=== PATIENT | female | born 1995 | race Caucasian/White ===

== ENCOUNTER 2016-09-21 10:43 | Emergency (ER) | payer SELFPAY ==
[~2016-09-21] VITALS: Ht 175.3 cm; Wt 90.7 kg
[2016-09-21 11:46] LABS: BILIRUBIN,URINE NEGATIVE (NEGATIVE); KETONES,URINE NEGATIVE (NEGATIVE); LEUKOCYTE ESTERASE ,URINE 3+ (NEGATIVE); NITRITE,URINE NEGATIVE (NEGATIVE); PH,URINE 6 (5-9); PROTEIN,URINE 2+ (NEGATIVE); UROBILINOGEN,URINE NORMAL (NORMAL)
[2016-09-21 12:02] LABS: WBC,URINE 50-100 /HPF
[2016-09-21] MEDS ORDERED: CIPR-225 PO (12:20)
--- NOTE | 2016-09-21 12:24 | ED GU-Female ---
General Chief Complaint: Abdominal/GI Problems Stated Complaint: ABD PAIN Nursing Triage Note: PT REPORTS SHE STARTED HER PERIOD 2 WEEKS AGO AND FINISHED IT. SHE STATES SHE BEGAN BLEEDING AGAIN TODAY ACCOMPANIED BY LOWER ABD CRAMPING. Nursing Sepsis Screen: No Definite Risk History of Present Illness Time seen by provider: 11:15 Initial Comments Patient reports approximately 3 weeks ago that she thought she was , she never had a positive test. She then had a menstrual cycle that started on September 01. This cycle lasted approximately 4 days. She began spotting again yesterday evening and then having irregular vaginal bleeding today. She has been using a pad, she has not used a tampon. She's been changing the pad approximately every 3 hours, without excessive bleeding. She has not seen an OB/ FLAT BED KNITTER since having her daughter, in 2013. He [facility] within [place]. She is having mild suprapubic cramping today. She denies feeling lightheaded, dizzy or faint. She denies dysuria, frequency or hematuria. She denies any other vaginal discharge and no painful intercourse. Timing/Duration: this morning Severity/Quality: mild Location: suprapubic Radiation: none Activities at Onset: none Prior Genitourinary Problems: none (she denies a history of STIs.) Sexual [place] History: less than 2 months ago, single partner Modifying Factors: Improves With Resting, Improves With Urinating Associated Symptoms: abdominal pain, No fever/chills, No loss of bladder control, No lower back pain, No nausea/vomiting, No polyuria, No urinary frequency Allergies and Home Medications Allergies Coded Allergies: No Known Drug Allergies (Unverified , 09/21/16) Home Medications Ciprofloxacin HCl 500 Mg Tablet, 500 MG PO BID, #6 Ref 0 Prescribed by: NAKIA TODD on 09/21/16 1220 Constitutional: no symptoms reported, see HPI EENTM: no symptoms reported, see HPI Respiratory: no symptoms reported, see HPI Cardiovascular: no symptoms reported, see HPI Gastrointestinal: no symptoms reported, see HPI Genitourinary: see HPI, other (irregular menstrual cycle) : No (negative hCG) LMP: Sep 20, 2016 Musculoskeletal: no symptoms reported, see HPI Skin: no symptoms reported, see HPI Psychiatric/Neurological: No Symptoms Reported, See HPI Endocrine: No Symptoms Reported Hematologic/Lymphatic: No Symptoms Reported, See HPI Past Tugldvh-Wykwoo-Dousgp Hx Patient Social History Alcohol Use: Denies Use Recreational Drug Use: No Smoking Status: Never a Smoker 2nd Hand Smoke Exposure: No Recent Foreign Travel: No Contact w/Someone Who Travel: No Recent Infectious Disease Expo: No Recent Hopitalizations: No Seasonal Allergies Seasonal Allergies: No Physical Exam Vital Signs Vital Sign - Last 12Hours 09/21/16 11:00 Temp 97.2 Pulse 74 Resp 16 B/P (MAP) 122/74 Pulse Ox 98 O2 Delivery Room Air Capillary Refill : Less Than 3 Seconds General Appearance: WD/WN, no apparent distress Neck: non-tender, full range of motion, normal inspection Cardiovascular: normal peripheral pulses, regular rate, rhythm, no edema, no JVD, no murmur Respiratory: chest non-tender, lungs clear, normal breath sounds, no respiratory distress Gastrointestinal: normal bowel sounds, soft, no organomegaly, no pulsatile mass , tenderness (trace suprapubic) Back: normal inspection, no CVA tenderness, no vertebral tenderness Extremities: normal range of motion, non-tender, normal inspection, no calf tenderness, normal capillary refill Neurologic/Psychiatric: no motor/sensory deficits, alert, normal mood/affect, oriented x 3 Skin: normal color, warm/dry Lymphatic: no adenopathy Progress/Results/Core Measures Results/Orders Lab Results Laboratory Tests Test 09/21/16 11:35 Range/Units Urine Color YELLOW Urine Clarity CLEAR Urine pH 6 5-9 Urine Specific [place] 1.015 L 1.016-1.022 Urine Protein 2+ H NEGATIVE Urine Glucose (UA) NEGATIVE NEGATIVE Urine Ketones NEGATIVE NEGATIVE Urine Nitrite NEGATIVE NEGATIVE Urine Bilirubin NEGATIVE NEGATIVE Urine Urobilinogen NORMAL NORMAL MG/DL Urine Leukocyte Esterase 3+ H NEGATIVE Urine RBC (Auto) 5+ H NEGATIVE Urine RBC 50-100 H /HPF Urine WBC 50-100 H /HPF Urine Squamous Epithelial Cells 5-10 /HPF Urine Crystals NONE /LPF Urine Bacteria NEGATIVE /HPF Urine Casts NONE /LPF Urine Mucus NEGATIVE /LPF Urine Culture Indicated YES My Orders Orders - NAKIA TODD Urine Bedside (09/21/16 11:19) Vital Signs/I&O Vital Sign - Last 12Hours 09/21/16 11:00 Temp 97.2 Pulse 74 Resp 16 B/P (MAP) 122/74 Pulse Ox 98 O2 Delivery Room Air Blood Pressure Mean: 90 Point of Care Testing Urine -Bedside: Negative Departure Impression Impression: Primary Impression: Urinary tract infection Qualified Codes: N30.01 - Acute cystitis with hematuria Additional Impression: Irregular menstrual bleeding Disposition: HOME, SELF-CARE Condition: Stable Departure-Patient Inst. Decision time for Depature: 11:45 Referrals: NO,LOCAL PHYSICIAN (PCP/Family) Primary Care Physician Patient Instructions: IRREGULAR VAGINAL BLEEDING, Urinary Tract Infection, Adult (DC) Add. Discharge Instructions: Schedule follow-up appointment with [facility] from [place] that you have previously seen. Recommend Pap and Pelvic exam prior to next or for continued irregular menstrual cycles. Start taking Vitamin, one daily over the counter. Monitor amount and frequency of pad changes, if increases to more than one pad an hour or feeling faint, return to Emergency Department. Ibuprofen 600 mg every 8 hours for cramping. Complete ANTIBIOTIC for urinary tract infection. Return to emergency department if he develops a fever, lightheaded, dizzy, or new problems. All discharge instructions reviewed with patient and/or family. Voiced understanding. Scripts Ciprofloxacin HCl (Cipro) 500 Mg Tablet 500 MG PO BID, #6 TAB 0 Refills Prov: NAKIA TODD 09/21/16 NAKIA TODD Sep 21, 2016 12:24
[2016-09-21 12:39] VITALS: BP 122/74
== END 2016-09-21 12:39 | disposition home or self-care (01) ==
LOC: ER 10:47
DX: N39.0 Urinary tract infection, site not specified (principal); N92.6 Irregular menstruation, unspecified
CPT/HCPCS: 81000; 84703; 87088; 99282

== ENCOUNTER → 2017-01-18 | Outpatient (CLI) | payer MEDICAID ==
[~2017-01-18] MED LIST: CIPR-225 PO
--- NOTE | 2017-01-18 13:27 | Diagnostic Imaging Report ---
First trimester OB ultrasound. INDICATION: Dating. FINDINGS: There is a normal-appearing single intrauterine . An embryo is seen with cardiac activity at 163 beats per minute. The crown-rump length is at 10 weeks and 3 days. CECIL is 08/14/15. The ovaries are not seen, probably obscured by bowel gas. IMPRESSION: Live single intrauterine . Dictated by: Dictated on workstation # [id number]
== END ==
LOC: RAD 12:56
PROVIDERS: ATTEND Family Medicine
DX: Z36.87 Encounter for antenatal screening for uncertain dates (principal); Z3A.10 10 weeks gestation of pregnancy
CPT/HCPCS: 76801

== ENCOUNTER 2017-02-14 18:31 | Emergency (ER) | payer MEDICAID ==
[~2017-02-14] VITALS: Ht 170.2 cm; Wt 86.2 kg
--- NOTE | 2017-02-14 18:47 | ED GU-Female ---
General Stated Complaint: 16 WKS ;VAGINAL BLEEDING Source: patient Exam Limitations: no limitations History of Present Illness Time seen by provider: 18:46 Initial Comments To ER with reports of being roughly 16 weeks gestation and noting some bright red blood on the toilet paper after wiping following urination. This was first noticed earlier today. No abdominal cramping or pain. Ab0. She was briefly taking some vitamins but ran out of them and is not taking them anymore. Severity/Quality: mild Location: unknown Activities at Onset: none Allergies and Home Medications Allergies Coded Allergies: No Known Drug Allergies (Unverified , 09/21/16) Home Medications No Active Prescriptions or Reported Meds Constitutional: see HPI EENTM: see HPI Respiratory: no symptoms reported Cardiovascular: no symptoms reported Genitourinary: no symptoms reported Musculoskeletal: no symptoms reported Skin: no symptoms reported Psychiatric/Neurological: No Symptoms Reported Endocrine: No Symptoms Reported Hematologic/Lymphatic: No Symptoms Reported Past Egrwvct-Icafyz-Rqjwfn Hx Patient Social History 2nd Hand Smoke Exposure: No Recent Foreign Travel: No Contact w/Someone Who Travel: No Recent Hopitalizations: No Seasonal Allergies Seasonal Allergies: No Surgeries History of Surgeries: No Physical Exam Vital Signs Vital Sign - Last 12Hours 02/14/17 18:35 Temp 98.4 Pulse 78 Resp 18 B/P (MAP) 132/81 Pulse Ox 99 Capillary Refill : General Appearance: WD/WN, no apparent distress HEENT: PERRL/EOMI, normal ENT inspection, TMs normal Neck: non-tender, full range of motion Respiratory: normal breath sounds, no respiratory distress, no accessory muscle use Gastrointestinal: normal bowel sounds, non tender Neurologic/Psychiatric: alert, normal mood/affect, oriented x 3 Skin: normal color, warm/dry Progress/Results/Core Measures Suspected Sepsis SIRS Temperature: Pulse: Respiratory Rate: Laboratory Tests 02/14/17 19:10: Blood Pressure / Mean: Laboratory Tests 02/14/17 19:10: Results/Orders Lab Results Laboratory Tests Test 02/14/17 19:06 02/14/17 19:10 Range/Units Urine Color YELLOW Urine Clarity SLIGHTLY CLOUDY Urine pH 5 5-9 Urine Specific [place] 1.030 H 1.016-1.022 Urine Protein NEGATIVE NEGATIVE Urine Glucose (UA) NEGATIVE NEGATIVE Urine Ketones NEGATIVE NEGATIVE Urine Nitrite NEGATIVE NEGATIVE Urine Bilirubin NEGATIVE NEGATIVE Urine Urobilinogen NORMAL NORMAL MG/DL Urine Leukocyte Esterase 2+ H NEGATIVE Urine RBC (Auto) 1+ H NEGATIVE Urine RBC 0-2 /HPF Urine WBC 5-10 H /HPF Urine Squamous Epithelial Cells 25-50 H /HPF Urine Crystals NONE /LPF Urine Bacteria FEW H /HPF Urine Casts NONE /LPF Urine Mucus LARGE H /LPF Urine Culture Indicated YES My Orders Orders - DONG MCGOWAN APRN Cbc With Automated Diff (02/14/17 18:45) Hcg,Quantitative (02/14/17 18:45) Ua Culture If Indicated (02/14/17 18:45) Urine Culture (02/14/17 19:06) Vital Signs/I&O Vital Sign - Last 12Hours 02/14/17 18:35 Temp 98.4 Pulse 78 Resp 18 B/P (MAP) 132/81 Pulse Ox 99 Capillary Refill : Departure Communication (Admissions) Progress Notes 1848-27 days ago she did have a live intrauterine at 10 weeks 3 days documented on ultrasound here. Today on bedside ultrasound I am able to identify the intrauterine with cardiac activity and movement. Impression Impression: Primary Impression: Spotting in early Additional Impression: Urinary tract infection Disposition: HOME, SELF-CARE Condition: Stable Departure-Patient Inst. Decision time for Depature: 18:50 Referrals: [place] CHICAS MD (PCP) Primary Care Physician Patient Instructions: SPOTTING IN EARLY , Urinary Tract Infection, Adult (DC) Add. Discharge Instructions: 1. Return to ER for any concerns 2. Follow-up with your doctor later this week. Scripts Nitrofurantoin Macrocrystal (Nitrofurantoin) 100 Mg Capsule 100 MG PO BID, #10 CAP Prov: DONG MCGOWAN APRN 02/14/17 DONG MCGOWAN APRN Feb 14, 2017 18:47
[2017-02-14 19:12] LABS: BILIRUBIN,URINE NEGATIVE (NEGATIVE); KETONES,URINE NEGATIVE (NEGATIVE); LEUKOCYTE ESTERASE ,URINE 2+ (NEGATIVE); NITRITE,URINE NEGATIVE (NEGATIVE); PH,URINE 5 (5-9); PROTEIN,URINE NEGATIVE (NEGATIVE); UROBILINOGEN,URINE NORMAL (NORMAL)
[2017-02-14 19:28] LABS: BASOPHILS % (AUTO) 1 % (0-10); EOSINOPHILS # (AUTO) 0.2 10^3/uL (0.0-0.3); EOSINOPHILS % (AUTO) 3 % (0-10); LYMPHOCYTES # (AUTO) 2.1 X 10^3 (1.0-4.0); LYMPHOCYTES % (AUTO) 26 % (12-44); MEAN CORPUSCULAR HEMOGLOBIN 29 PG (25-34); MEAN CORPUSCULAR HGB CONC 35 G/DL (32-36); MEAN CORPUSCULAR VOLUME 83 FL (80-99); MONOCYTES # (AUTO) 0.9 X 10^3 (0.0-1.0); MONOCYTES % (AUTO) 11 % (0-12); NEUTROPHILS # (AUTO) 4.8 X 10^3 (1.8-7.8); NEUTROPHILS % (AUTO) 59 % (42-75); PLATELET COUNT 81 10^3/uL (130-400); RED BLOOD COUNT 4.42 10^6/uL (4.35-5.85)
[2017-02-14 19:33] LABS: SQUAMOUS EPITHELIAL CELL,UR 25-50 /HPF
[2017-02-14] MEDS ORDERED: NITR100C PO (19:37)
[2017-02-14 19:55] VITALS: BP 132/81
== END 2017-02-14 19:55 | disposition home or self-care (01) ==
LOC: EDUNIT# 18:31 → ER 18:32
DX: O26.852 Spotting complicating pregnancy, second trimester (principal); O23.40 Unspecified infection of urinary tract in pregnancy, unspecified trimester; Z3A.16 16 weeks gestation of pregnancy
CPT/HCPCS: 36415; 81000; 84702; 85025; 87088; 99282

== ENCOUNTER → 2017-03-27 | Outpatient (CLI) | payer MEDICAID ==
[~2017-03-27] MED LIST changes: +NITR100C PO
--- NOTE | 2017-03-27 12:52 | Diagnostic Imaging Report ---
INDICATION: care. TECHNIQUE: Multiple real-time grayscale images were obtained over the gravid uterus. COMPARISON: Exam compared to 01/18/2017. FINDINGS: A martinez gestation is in cephalic position. The placenta is anterior. The caudal tip is extending to the margin of the closed os. The cervical length is 5.2 cm, nondilated, and appearing unremarkable. No pathological finding at the anatomical survey is found however owing to lie, spine and cord insertion are not well visualized. Heart rate is 147 beats per minute. IMPRESSION: Martinez gestation measuring 19 weeks 5 days. No pathological finding at the anatomical survey however it is limited at the spine and cord insertion owing to lie. Anterior placenta is low lying extending to the margin of the closed internal os with normal cervical length. Followup in the late second or third trimester recommended to exclude persistent marginal previa. Biometrical measurements are as follows: Biparietal 4.38 cm, age 19 weeks 2 days. Head circumference 16.73 cm, age 19 weeks 3 days. Abdominal circumference 14.71 cm, age 20 weeks 0 days. Femur length 3.23 cm, age 20 weeks 1 days. Sonographic estimate age: 19 weeks 5 days. Sonographic estimated date of delivery: 08-16-17. Estimated Weight: 322 gm (+/- 47 gm). LMP percentile: 34%. heart rate: 147 beats per minute. number: 1 of 1. Dictated by: Dictated on workstation # [id number]
== END ==
LOC: RAD 09:36
PROVIDERS: ATTEND Family Medicine
DX: Z36.89 Encounter for other specified antenatal screening (principal); Z3A.19 19 weeks gestation of pregnancy
CPT/HCPCS: 76805

== ENCOUNTER → 2017-05-03 | Outpatient (CLI) | payer MEDICAID ==
--- NOTE | 2017-05-03 14:16 | Diagnostic Imaging Report ---
INDICATION: Follow-up spine, cord insertion, and low-lying placenta. TECHNIQUE: Multiple real-time grayscale images were obtained over the gravid uterus. COMPARISON: 03/27/2017. FINDINGS: There is a single live fetus in a cephalic presentation. The placenta is anterior. The placenta is no longer low lying. The amniotic fluid volume appears normal. The spine and cord insertion are unremarkable. IMPRESSION: Unremarkable follow-up ultrasound demonstrating an anterior placenta which is no longer low lying. spine and cord insertion are unremarkable. Dictated by: Dictated on workstation # [id number]
== END ==
LOC: RAD 12:55
PROVIDERS: ATTEND Family Medicine
DX: Z34.82 Encounter for supervision of other normal pregnancy, second trimester (principal); Z3A.00 Weeks of gestation of pregnancy not specified
CPT/HCPCS: 76816

== ENCOUNTER 2017-06-08 12:42 | Outpatient (RCR) | payer MEDICAID ==
[2017-03-16 12:14] LABS: ABSOLUTE RETIC # 68 10e9/L (24-90); BASOPHILS % (AUTO) 0 % (0-10); EOSINOPHILS # (AUTO) 0.1 10^3/uL (0.0-0.3); EOSINOPHILS % (AUTO) 2 % (0-10); HEMATOCRIT 40 % (35-52); HEMOGLOBIN 13.8 G/DL (11.5-16.0); LYMPHOCYTES % (AUTO) 24 % (12-44); MEAN CORPUSCULAR HEMOGLOBIN 29 PG (25-34); MEAN CORPUSCULAR HGB CONC 35 G/DL (32-36); MEAN CORPUSCULAR VOLUME 82 FL (80-99); MONOCYTES # (AUTO) 0.6 X 10^3 (0.0-1.0); MONOCYTES % (AUTO) 8 % (0-12); NEUTROPHILS # (AUTO) 5.6 X 10^3 (1.8-7.8); NEUTROPHILS % (AUTO) 66 % (42-75); PLATELET COUNT 90 10^3/uL (130-400); RED BLOOD COUNT 4.84 10^6/uL (4.35-5.85); RED CELL DISTRIBUTION WIDTH 12.4 % (10.0-14.5); RETICULOCYTE % 1.41 % (0.50-2.40); WHITE BLOOD COUNT 8.4 10^3/uL (4.3-11.0)
[2017-03-16 12:25] LABS: INR 0.9 (0.8-1.4); PROTHROMBIN TIME PATIENT 12.7 SEC (12.2-14.7)
[2017-03-16 12:34] LABS: BAND NEUTROPHILS 0 %; BASOPHILS % (MANUAL) 0 %; EOSINOPHILS % (MANUAL) 4 %; LYMPHOCYTES % (MANUAL) 18 %; MONOCYTES % (MANUAL) 4 %; NEUTROPHILS % (MANUAL) 70 %; RBC MORPH NORMAL; REACTIVE LYMPHOCYTES 4 %
[2017-03-17 13:14] LABS: HEPATITIS C ANTIBODY C Non-Reactive (Non-Reactive)
[2017-06-08 14:15] LABS: BASOPHILS % (AUTO) 0 % (0-10); EOSINOPHILS # (AUTO) 0.1 10^3/uL (0.0-0.3); EOSINOPHILS % (AUTO) 2 % (0-10); HEMATOCRIT 35 % (35-52); HEMOGLOBIN 12.5 G/DL (11.5-16.0); LYMPHOCYTES # (AUTO) 1.6 X 10^3 (1.0-4.0); LYMPHOCYTES % (AUTO) 20 % (12-44); MEAN CORPUSCULAR HEMOGLOBIN 30 PG (25-34); MEAN CORPUSCULAR HGB CONC 35 G/DL (32-36); MEAN CORPUSCULAR VOLUME 84 FL (80-99); MEAN PLATELET VOLUME 13.9 FL (7.4-10.4); MONOCYTES # (AUTO) 0.9 X 10^3 (0.0-1.0); MONOCYTES % (AUTO) 11 % (0-12); NEUTROPHILS # (AUTO) 5.4 X 10^3 (1.8-7.8); NEUTROPHILS % (AUTO) 67 % (42-75); PLATELET COUNT 107 10^3/uL (130-400); RED CELL DISTRIBUTION WIDTH 12.8 % (10.0-14.5); WHITE BLOOD COUNT 8.1 10^3/uL (4.3-11.0)
[2017-06-08 14:52] LABS: ALANINE AMINOTRANSFERASE 17 U/L (0-55); ALBUMIN 3.6 GM/DL (3.2-4.5); ALKALINE PHOSPHATASE 51 U/L (40-136); BILIRUBIN,TOTAL 0.2 MG/DL (0.1-1.0); BUN/CREATININE RATIO 11; CALCIUM 9.1 MG/DL (8.5-10.1); CARBON DIOXIDE 23 MMOL/L (21-32); CHLORIDE 108 MMOL/L (98-107); CREATININE SERUM 0.55 MG/DL (0.60-1.30); GFR ESTIMATED > 60; GLUCOSE 106 MG/DL (70-105); POTASSIUM 3.7 MMOL/L (3.6-5.0); SODIUM 137 MMOL/L (135-145); TOTAL PROTEIN 6.5 GM/DL (6.4-8.2)
== END 2017-06-14 | disposition home or self-care (01) ==
LOC: ONC 12:42
PROVIDERS: ATTEND Internal Medicine Hematology & Oncology
DX: O99.112 Other diseases of the blood and blood-forming organs and certain disorders involving the immune mechanism complicating pregnancy, second trimester (principal); D69.6 Thrombocytopenia, unspecified; Z3A.18 18 weeks gestation of pregnancy
CPT/HCPCS: 80053; 80074; 82525; 82607; 82728; 82746; 83540; 85007; 85025; 85027; 85045; 85610; 85730; 86038; 86039; 86703; 99213; 99214

== ENCOUNTER 2017-08-10 10:50 | Outpatient (RCR) | payer MEDICAID ==
[2017-07-06 11:32] LABS: BASOPHILS % (AUTO) 0 % (0-10); EOSINOPHILS # (AUTO) 0.1 10^3/uL (0.0-0.3); EOSINOPHILS % (AUTO) 1 % (0-10); HEMATOCRIT 35 % (35-52); HEMOGLOBIN 11.9 G/DL (11.5-16.0); LYMPHOCYTES # (AUTO) 1.6 X 10^3 (1.0-4.0); LYMPHOCYTES % (AUTO) 21 % (12-44); MEAN CORPUSCULAR HEMOGLOBIN 29 PG (25-34); MEAN CORPUSCULAR HGB CONC 34 G/DL (32-36); MEAN CORPUSCULAR VOLUME 84 FL (80-99); MEAN PLATELET VOLUME 13.8 FL (7.4-10.4); MONOCYTES # (AUTO) 0.7 X 10^3 (0.0-1.0); MONOCYTES % (AUTO) 10 % (0-12); NEUTROPHILS # (AUTO) 5.1 X 10^3 (1.8-7.8); NEUTROPHILS % (AUTO) 68 % (42-75); PLATELET COUNT 91 10^3/uL (130-400); RED BLOOD COUNT 4.15 10^6/uL (4.35-5.85); RED CELL DISTRIBUTION WIDTH 13.1 % (10.0-14.5); WHITE BLOOD COUNT 7.4 10^3/uL (4.3-11.0)
[2017-07-06 11:51] LABS: ALANINE AMINOTRANSFERASE 17 U/L (0-55); ALBUMIN 3.7 GM/DL (3.2-4.5); ALKALINE PHOSPHATASE 71 U/L (40-136); BILIRUBIN,TOTAL 0.3 MG/DL (0.1-1.0); BUN/CREATININE RATIO 8; CALCIUM 9.4 MG/DL (8.5-10.1); CARBON DIOXIDE 23 MMOL/L (21-32); CHLORIDE 108 MMOL/L (98-107); CREATININE SERUM 0.64 MG/DL (0.60-1.30); GFR ESTIMATED > 60; GLUCOSE 120 MG/DL (70-105); POTASSIUM 3.6 MMOL/L (3.6-5.0); SODIUM 139 MMOL/L (135-145); TOTAL PROTEIN 6.6 GM/DL (6.4-8.2)
[2017-08-10 11:15] LABS: BASOPHILS % (AUTO) 0 % (0-10); EOSINOPHILS # (AUTO) 0.1 10^3/uL (0.0-0.3); EOSINOPHILS % (AUTO) 1 % (0-10); HEMATOCRIT 35 % (35-52); LYMPHOCYTES # (AUTO) 1.7 X 10^3 (1.0-4.0); LYMPHOCYTES % (AUTO) 25 % (12-44); MEAN CORPUSCULAR HEMOGLOBIN 28 PG (25-34); MEAN CORPUSCULAR HGB CONC 34 G/DL (32-36); MEAN CORPUSCULAR VOLUME 83 FL (80-99); MONOCYTES # (AUTO) 0.7 X 10^3 (0.0-1.0); MONOCYTES % (AUTO) 9 % (0-12); NEUTROPHILS # (AUTO) 4.6 X 10^3 (1.8-7.8); NEUTROPHILS % (AUTO) 65 % (42-75); PLATELET COUNT 86 10^3/uL (130-400); RED BLOOD COUNT 4.25 10^6/uL (4.35-5.85); RED CELL DISTRIBUTION WIDTH 13.5 % (10.0-14.5); WHITE BLOOD COUNT 7.1 10^3/uL (4.3-11.0)
[2017-08-10 11:33] LABS: ALANINE AMINOTRANSFERASE 19 U/L (0-55); ALBUMIN 3.4 GM/DL (3.2-4.5); ALKALINE PHOSPHATASE 79 U/L (40-136); BILIRUBIN,TOTAL 0.4 MG/DL (0.1-1.0); BUN/CREATININE RATIO 8; CARBON DIOXIDE 21 MMOL/L (21-32); CHLORIDE 108 MMOL/L (98-107); CREATININE SERUM 0.65 MG/DL (0.60-1.30); GFR ESTIMATED > 60; GLUCOSE 126 MG/DL (70-105); POTASSIUM 3.8 MMOL/L (3.6-5.0); SODIUM 139 MMOL/L (135-145); TOTAL PROTEIN 6.5 GM/DL (6.4-8.2)
[2017-08-11] MEDS ORDERED: ACYC400T PO (19:42)
[2017-08-12] MEDS ORDERED: PREN1TAB86 PO (15:18)
[2017-08-14] MEDS ORDERED: IBUP-844 PO (09:29)
== END 2017-10-04 | disposition home or self-care (01) ==
LOC: ONC 10:50
PROVIDERS: ATTEND Internal Medicine Hematology & Oncology
DX: O99.113 Other diseases of the blood and blood-forming organs and certain disorders involving the immune mechanism complicating pregnancy, third trimester (principal); D69.6 Thrombocytopenia, unspecified; Z3A.33 33 weeks gestation of pregnancy
CPT/HCPCS: 36415; 80053; 85025; 99213

== ENCOUNTER 2017-08-11 18:50 | Outpatient (CLI) | payer MEDICAID ==
[~2017-08-11] VITALS: Ht 171.4 cm; Wt 94.6 kg
[2017-08-11 19:10] VITALS: BP 124/80
[2017-08-11] MEDS ORDERED: ACYC400T PO (19:42)
[2017-08-12] MEDS ORDERED: PREN1TAB86 PO (15:18)
--- NOTE | 2017-08-14 15:57 | Physician Query-Final Dx ---
JOSELYN NORTH 08/14/17 1556: Clinic Account Progress/Dx Physician Query: Please give diagnosis Date of Service August 11, 2017 at 18:50 [place] CHICAS MD 08/23/17 0938: Clinic Account Progress/Dx DIAGNOSIS: Diagnosis 39 week gestation Contractions/early labor with no cervical change JOSELYN NORTH August 14, 2017 15:56 [place] CHICAS MD Aug 23, 2017 09:38
== END 2017-08-11 19:58 | disposition home or self-care (01) ==
LOC: WSo 18:50 → LDRP 18:50 → WSo 19:58
PROVIDERS: ATTEND Family Medicine
DX: O47.1 False labor at or after 37 completed weeks of gestation (principal); Z3A.39 39 weeks gestation of pregnancy
CPT/HCPCS: 99213

== ENCOUNTER 2017-08-12 13:33 | Inpatient (IN) | payer MEDICAID ==
[2017-08-12] VITALS (14 sets, daily range): BP systolic 96–138; BP diastolic 56–78
[~2017-08-12] VITALS: Ht 171.4 cm; Wt 93.9 kg
[~2017-08-12 13:33] MED LIST changes: +ACYC400T PO
[2017-08-12] MEDS ORDERED: D5 LR IV SOLUTION 1,000 ML IV SCH (14:01)
[2017-08-12] MEDS ORDERED: MINERAL OIL CONCENTRATE 99.9% 15 ML UDC TOP PRN (14:15)
[2017-08-12 14:27] LABS: BASOPHILS % (AUTO) 0 % (0-10); EOSINOPHILS % (AUTO) 0 % (0-10); HEMATOCRIT 35 % (35-52); HEMOGLOBIN 12.1 G/DL (11.5-16.0); LYMPHOCYTES # (AUTO) 1.2 X 10^3 (1.0-4.0); LYMPHOCYTES % (AUTO) 10 % (12-44); MEAN CORPUSCULAR HEMOGLOBIN 29 PG (25-34); MEAN CORPUSCULAR HGB CONC 35 G/DL (32-36); MEAN CORPUSCULAR VOLUME 82 FL (80-99); MONOCYTES # (AUTO) 1.1 X 10^3 (0.0-1.0); MONOCYTES % (AUTO) 9 % (0-12); NEUTROPHILS # (AUTO) 9.2 X 10^3 (1.8-7.8); NEUTROPHILS % (AUTO) 80 % (42-75); PLATELET COUNT 81 10^3/uL (130-400); RED CELL DISTRIBUTION WIDTH 13.5 % (10.0-14.5); WHITE BLOOD COUNT 11.5 10^3/uL (4.3-11.0)
--- NOTE | 2017-08-12 14:34 | History & Physical-OB ---
OB - Chief Complaint & HPI Date/Time Date of Admission: Date of Admission: August 12, 2017 at 2:01 pm Time Seen by Provider: 14:29 Chief Complaint/History OB-Reason for Admission/Chief: Onset of Labor Hx : 3 Hx Para: 2 Expected Date of Delivery: Aug 18, 2017 Gestational Age in Weeks: 39 Gestational Age in Days: 1 Admission Nurse Assessment Rev: Yes History of Labs O neg, antibody neg, HIV/HepB/RPR NR. GC neg. Chlamydia pos, treated 01/25 and f/ u [facility]ANNAH negative. History of HSV. Chronic thrombocytopenia- ITP vs gestational, platelets stable throughout with lowest count 78,000. Allergies and Home Medications Allergies Coded Allergies: No Known Drug Allergies (Unverified , 09/21/16) Home Medications Acyclovir 400 Mg Tablet, 400 MG PO TID, (Reported) Patient Home Medication List Home Medication List Reviewed: Yes OB - History Hx of Present Care: Yes Ultrasounds: Normal mid trimester US (initial US with low-lying placenta, follow up resolved.) Obstetrical Complications: Other (Thrombocytopenia) Medical Complications: Other (HSV on suppression therapy) Obstetrical History Hx : 3 Hx Para: 2 Hx # Term Pregnancies: 2 Hx # Pregnancies: 0 Number of Living Children: 2 Hx Termination: No Hx Total # of Abortions (Spona: 0 Hx Multiple Gestation: No Hx Ectopic : No Hx Stillbirth: No Hx Complication: No Hx Induced Hypertens: No Hx Maternal Gestational Diabet: No Hx Hemorrhage: Yes Delivery History Hx Dystocia: No Hx Forceps Assisted Delivery: No Hx Vacuum Extraction Assisted: No Hx Placenta Abnormality: No Hx Distress: No Hx Large For Gestational Age I: No Hx Small for Gestational Age I: No Hx Section: No Hx Vaginal Delivery Post C-Sec: No Hx Blood Disorders: Yes (thrombocytopenia) Adverse Rxn to Tranfusion: No Patient Past Medical History PMHx: Herpes Immune vs gestational thromboctyopenia Social History/Family History HIV/AIDS: No Recent Infectious Disease Expo: No Sexually Transmitted Disease: Yes (chlamydia, HSV) Alcohol Use: Denies Use Recreational Drug Use: No Smoking Cessation: Never smoker 2nd Hand Smoke Exposure: No Immunizations Tetanus Booster (TDap): Less than 5yrs (06/14/2017) Rubella: immune RPR/VDRL: Negative GBS Status: Negative HBsAG: Negative OB - Admission Exam Physical Exam HEENT: NCAT Cervical Dilatation: 5cm Effacement: 100% Station: -1 Membranes: Intact Heart Rate: 120's Decelerations: Early Decelerations Short Term Variability: Present Terrazzo Layer Helper Variability: Average (6-25) Contractions on Admission: < 5 Minutes Apart Intensity: Moderate Labs Laboratory Tests Test 08/12/17 14:10 Range/Units White Blood Count 11.5 H 4.3-11.0 10^3/uL Red Blood Count 4.20 L 4.35-5.85 10^6/uL Hemoglobin 12.1 11.5-16.0 G/DL Hematocrit 35 35-52 % Mean Corpuscular Volume 82 80-99 FL Mean Corpuscular Hemoglobin 29 25-34 PG Mean Corpuscular Hemoglobin Concent 35 32-36 G/DL Red Cell Distribution Width 13.5 10.0-14.5 % Platelet Count 81 L 130-400 10^3/uL Mean Platelet Volume 7.4-10.4 FL Neutrophils (%) (Auto) 80 H 42-75 % Lymphocytes (%) (Auto) 10 L 12-44 % Monocytes (%) (Auto) 9 0-12 % Eosinophils (%) (Auto) 0 0-10 % Basophils (%) (Auto) 0 0-10 % Neutrophils # (Auto) 9.2 H 1.8-7.8 X 10^3 Lymphocytes # (Auto) 1.2 1.0-4.0 X 10^3 Monocytes # (Auto) 1.1 H 0.0-1.0 X 10^3 Eosinophils # (Auto) 0.0 0.0-0.3 10^3/uL Basophils # (Auto) 0.0 0.0-0.1 10^3/uL OB - Assessment/Plan/Diagnosis Assessment Assessment: active labor Admission Dx Active labor at 39 weeks gestation Immune vs gestational thrombocytopenia H/o HSV on acyclovir suppression GBS neg Blood type O neg Rubella immune Admission Status: Inpatient Order (span 2 midnights) Reason for Inpatient Admission: Labor and delivery with expected stay of 2 nights Plan Plan: Expectant Management Other Plan H/O HSV on suppression- vaginal speculum exam done and no lesions noted Immune vs gestational thrombocytopenia- stable platelets above 50,000 low risk for complications. Does not want epidural anyway. Methergine and cytotec available for delivery. Copy Copies To 1: [place] CHICAS MD, BETHANY N MD August 12, 2017 2:34 pm
[2017-08-12] MEDS ORDERED: PREN1TAB86 PO (15:18)
[2017-08-12] MEDS ORDERED: MISOPROSTOL 200 MCG (CYTOTEC) TABLET ONE (16:09)
[2017-08-12] MEDS ORDERED: OXYTOCIN/NORMAL SALINE 500 ML IV ONE ×2 (16:10→17:34)
[2017-08-12] MEDS ORDERED: METHYLERGONOVINE 0.2 MG/ML (METHERGINE) AMP ONE (17:22)
--- NOTE | 2017-08-12 17:45 | OB Labor & Delivery Record ---
Vag Delivery Note Vag Delivery Note Date of Delivery: 08/12/17 Preoperative Diagnosis: Allie Almazan is a (24 /Para 3 / 2, Gestational Age (wks)39with 1d Postoperative Diagnosis: Same Surgeon: [place] CHICAS Anesthesia: None Delivery Type: Spontaneous vaginal Findings: [] Viable male , apgars 8/9, weight 8#1 Lacerations: periurethral abrasion Intact placenta with 3 vessel cord. No nuchal cord, body cord or shoulder dystocia Cytotec 800 mcg placed for hemorrhage prophylaxis. Mild continued bleeding, methergine IM given. Estimated Blood Loss: 250 ml Complications: None Condition: Stable Description of Procedure: The patient is a G3 now P3 with gestational/immune thrombocytopenia who presented in active labor. She was admitted and informed consent was obtained. Her labor course was unremarkable. She progressed to complete dilatation and began to push. She was then set up for delivery. The 's head was delivered atraumatically in the JAZ position. The shoulders and remainder of the infant's body were then delivered without difficulty. Upon delivery, the was vigorous and placed on maternal abdomen. The cord was doubly clamped and cut and the was handed off to the pediatric staff. An intact placenta with 3- vessel cord delivered via Lili and there was found to be minimal bleeding.~ Vigorous fundal massage was performed and the fundus was found to be firm. IV oxytocin was given. Examination of the vagina and perineum revealed a periurethral abrasion not requiring repair. Following the delivery, sponge, instrument and needle counts were correct. Mom and baby were both in stable condition in the labor suite. Vitals - Labs Labs Laboratory Tests 08/12/17 14:10: White Blood Count 11.5H, Red Blood Count 4.20L, Hemoglobin 12.1, Hematocrit 35, Mean Corpuscular Volume 82, Mean Corpuscular Hemoglobin 29, Mean Corpuscular Hemoglobin Concent 35, Red Cell Distribution Width 13.5, Platelet Count 81L, Mean Platelet Volume , Neutrophils (%) (Auto) 80H, Lymphocytes (%) (Auto) 10L, Monocytes (%) (Auto) 9, Eosinophils (%) (Auto) 0, Basophils (%) (Auto) 0, Neutrophils # (Auto) 9.2H, Lymphocytes # (Auto) 1.2, Monocytes # (Auto) 1.1H, Eosinophils # (Auto) 0.0, Basophils # (Auto) 0.0 KY CHICAS MD August 12, 2017 5:45 pm
[2017-08-12] MEDS ORDERED: OXYTOCIN/NORMAL SALINE 500 ML IV SCH (18:43)
[2017-08-12] MEDS ORDERED: BENZOCAINE/MENTHOL (DERMOPLAST) 56 ML CAN TP PRN (18:45)
[2017-08-12] MEDS ORDERED: METHYLERGONOVINE 0.2 MG/ML (METHERGINE) AMP IM PRN (18:45)
[2017-08-12] MEDS ORDERED: MISOPROSTOL 200 MCG (CYTOTEC) TABLET PO ONE (18:45)
[2017-08-12] MEDS ORDERED: WITCH HAZEL(TUCKS) 40 EA JAR TOP PRN (18:45)
[2017-08-12] MEDS ORDERED: BENZOCAINE/MENTHOL (DERMOPLAST) 56 ML CAN TP ONE (20:08)
[2017-08-12] MEDS ORDERED: IBUPROFEN 600 MG (MOTRIN) TAB PO ONE (20:08)
[2017-08-12] MEDS: IBUPROFEN 600 MG (MOTRIN) TAB PO SCH (20:19)
[2017-08-12] MEDS ORDERED: CATHETER FLUSH 10 ML SYR IV SCH ×2 (22:00)
[2017-08-13 03:30] VITALS: BP 114/75
[2017-08-13] MEDS: IBUPROFEN 600 MG (MOTRIN) TAB PO SCH ×4 (03:32→22:14)
[2017-08-13 06:38] LABS: BASOPHILS % (AUTO) 0 % (0-10); EOSINOPHILS % (AUTO) 0 % (0-10); HEMATOCRIT 34 % (35-52); HEMOGLOBIN 11.6 G/DL (11.5-16.0); LYMPHOCYTES # (AUTO) 2.2 X 10^3 (1.0-4.0); LYMPHOCYTES % (AUTO) 16 % (12-44); MEAN CORPUSCULAR HEMOGLOBIN 28 PG (25-34); MEAN CORPUSCULAR HGB CONC 35 G/DL (32-36); MEAN CORPUSCULAR VOLUME 82 FL (80-99); MONOCYTES % (AUTO) 14 % (0-12); NEUTROPHILS # (AUTO) 9.6 X 10^3 (1.8-7.8); NEUTROPHILS % (AUTO) 70 % (42-75); PLATELET COUNT 76 10^3/uL (130-400); RED BLOOD COUNT 4.08 10^6/uL (4.35-5.85); RED CELL DISTRIBUTION WIDTH 13.6 % (10.0-14.5); WHITE BLOOD COUNT 13.8 10^3/uL (4.3-11.0)
[2017-08-13 08:30] VITALS: BP 107/63
[2017-08-13] MEDS: PRENATAL VITAMIN 1 EA TAB PO SCH (08:30)
--- NOTE | 2017-08-13 08:42 | Progress Note (SOAP) ---
Subjective Subjective/Events-last exam Doing well w/o complaints. Bleeding light. Minimal cramping. Having trouble with , started supplementing. Review of Systems Date Seen by Provider: August 13, 2017 Time Seen by Provider: 08:46 Objective Exam Last Set of Vital Signs Vital Signs Date Time Temp Pulse Resp B/P (MAP) Pulse Ox O2 Delivery O2 Flow Rate FiO2 08/13/17 03:30 97.9 66 18 114/75 (88) 99 08/12/17 18:08 Room Air Capillary Refill : General: Alert, Oriented X3, Cooperative Abdomen: Soft (uterus firm), No Tenderness Results/Procedures Lab Laboratory Tests 08/12/17 14:10: White Blood Count 11.5H, Red Blood Count 4.20L, Hemoglobin 12.1, Hematocrit 35, Mean Corpuscular Volume 82, Mean Corpuscular Hemoglobin 29, Mean Corpuscular Hemoglobin Concent 35, Red Cell Distribution Width 13.5, Platelet Count 81L, Mean Platelet Volume , Neutrophils (%) (Auto) 80H, Lymphocytes (%) (Auto) 10L, Monocytes (%) (Auto) 9, Eosinophils (%) (Auto) 0, Basophils (%) (Auto) 0, Neutrophils # (Auto) 9.2H, Lymphocytes # (Auto) 1.2, Monocytes # (Auto) 1.1H, Eosinophils # (Auto) 0.0, Basophils # (Auto) 0.0 08/13/17 06:00: White Blood Count 13.8H, Red Blood Count 4.08L, Hemoglobin 11.6, Hematocrit 34L , Mean Corpuscular Volume 82, Mean Corpuscular Hemoglobin 28, Mean Corpuscular Hemoglobin Concent 35, Red Cell Distribution Width 13.6, Platelet Count 76L, Mean Platelet Volume , Neutrophils (%) (Auto) 70, Lymphocytes (%) (Auto) 16, Monocytes (%) (Auto) 14H, Eosinophils (%) (Auto) 0, Basophils (%) (Auto) 0, Neutrophils # (Auto) 9.6H, Lymphocytes # (Auto) 2.2, Monocytes # (Auto) 2.0H, Eosinophils # (Auto) 0.0, Basophils # (Auto) 0.0 Assessment/Plan Assessment/Plan (1) Vaginal delivery with potential for hemorrhage Assessment & Plan: 08/12/17 at 39w1d following RYAN - periurethral abrasion not requiring repair - GBS neg; RI - at risk for bleeding due to thrombocytopenia; Cytotec and Methergine given for post- hemorrhage prophylaxis - normal lochia post- (2) Thrombocytopenia complicating Status: Chronic Assessment & Plan: Gestational vs ITP - platelets 81,000 --> 76,000 - no abnormal bleeding post- - will recheck prior to DC and need recheck at 6 wk pp visit. (3) Rh negative status during Status: Chronic Assessment & Plan: O neg/ baby O+ - will need Rhogam (4) HSV infection Status: Chronic Assessment & Plan: Tx w/ acyclovir prophylaxis; no active lesions (5) History of chlamydia Status: Resolved Assessment & Plan: +chlamydia 01/2017; negative [facility]ANNA[facility] Clinical Quality Measures DVT/VTE Risk/Contraindication: Risk Factor Score Per Nursin RFS Level Per Nursing on Admit: 1=Low/No VTE PPX MATT CALLES DO August 13, 2017 08:42
[2017-08-13 15:25] VITALS: BP 101/56
[2017-08-13 22:14] VITALS: BP 105/64
[2017-08-14] MEDS: IBUPROFEN 600 MG (MOTRIN) TAB PO SCH ×3 (04:13→17:03)
[2017-08-14 05:27] LABS: BASOPHILS % (AUTO) 0 % (0-10); EOSINOPHILS # (AUTO) 0.2 10^3/uL (0.0-0.3); EOSINOPHILS % (AUTO) 3 % (0-10); HEMATOCRIT 33 % (35-52); HEMOGLOBIN 10.8 G/DL (11.5-16.0); LYMPHOCYTES # (AUTO) 2.3 X 10^3 (1.0-4.0); LYMPHOCYTES % (AUTO) 25 % (12-44); MEAN CORPUSCULAR HEMOGLOBIN 28 PG (25-34); MEAN CORPUSCULAR HGB CONC 33 G/DL (32-36); MEAN CORPUSCULAR VOLUME 84 FL (80-99); MONOCYTES # (AUTO) 0.9 X 10^3 (0.0-1.0); MONOCYTES % (AUTO) 10 % (0-12); NEUTROPHILS # (AUTO) 5.8 X 10^3 (1.8-7.8); NEUTROPHILS % (AUTO) 63 % (42-75); PLATELET COUNT 66 10^3/uL (130-400); RED BLOOD COUNT 3.87 10^6/uL (4.35-5.85); RED CELL DISTRIBUTION WIDTH 13.9 % (10.0-14.5); WHITE BLOOD COUNT 9.2 10^3/uL (4.3-11.0)
[2017-08-14 08:00] VITALS: BP 101/66
[2017-08-14] MEDS: PRENATAL VITAMIN 1 EA TAB PO SCH (08:24)
--- NOTE | 2017-08-14 09:28 | Discharge Summary ---
Diagnosis/Chief Complaint Date of Admission August 12, 2017 at 14:01 Date of Discharge July Admission Diagnosis Admission Diagnosis Active labor at 39 weeks gestation Immune vs gestational thrombocytopenia H/o HSV on acyclovir suppression GBS neg Blood type O neg Rubella immune Discharge Diagnosis (1) Vaginal delivery with potential for hemorrhage Assessment & Plan: 08/12/17 at 39w1d following RYAN - periurethral abrasion not requiring repair - GBS neg; RI - at risk for bleeding due to thrombocytopenia; Cytotec and Methergine given for post- hemorrhage prophylaxis - normal lochia post- (2) Thrombocytopenia complicating Status: Chronic Assessment & Plan: Gestational vs ITP - platelets 81,000 --> 76,000 - no abnormal bleeding post- 08/14 - platelets 66,000 - will need recheck this week after discharge (3) Rh negative status during Status: Chronic Assessment & Plan: O neg/ baby O+ - Rhogam given (4) HSV infection Status: Chronic Assessment & Plan: Tx w/ acyclovir prophylaxis; no active lesions (5) History of chlamydia Status: Resolved Assessment & Plan: +chlamydia 01/2017; negative HANNAH Discharge Summary-OBS Procedures None. Discharge Physical Examination Allergies: Coded Allergies: No Known Drug Allergies (Unverified , 09/21/16) Vitals & I&Os Vital Sign - Last 12Hours Date Time Temp Pulse Resp B/P (MAP) Pulse Ox O2 Delivery O2 Flow Rate FiO2 08/14/17 08:00 97.5 52 18 101/66 (78) 99 Room Air General Appearance: Alert, Oriented X3, Cooperative Psych/Mental Status: Mood NL Hospital Course see discharge diagnosis Labs Laboratory Tests 08/14/17 05:15: White Blood Count 9.2, Red Blood Count 3.87L, Hemoglobin 10.8L, Hematocrit 33L, Mean Corpuscular Volume 84, Mean Corpuscular Hemoglobin 28, Mean Corpuscular Hemoglobin Concent 33, Red Cell Distribution Width 13.9, Platelet Count 66L, Mean Platelet Volume , Neutrophils (%) (Auto) 63, Lymphocytes (%) (Auto) 25, Monocytes (%) (Auto) 10, Eosinophils (%) (Auto) 3, Basophils (%) (Auto) 0, Neutrophils # (Auto) 5.8, Lymphocytes # (Auto) 2.3, Monocytes # (Auto) 0.9, Eosinophils # (Auto) 0.2, Basophils # (Auto) 0.0 Discharge Instructions to patient/family Please see electronic discharge instructions given to patient. Discharge Medications Reviewed and agree with Discharge Medication list on patient's Discharge Instruction sheet Clinical Quality Measures DVT/VTE Risk/Contraindication: Risk Factor Score Per Nursin RFS Level Per Nursing on Admit: 1=Low/No VTE PPX Copy Copies To 1: [place] CHICAS MD, LINDA K DO August 14, 2017 09:28
[2017-08-14] MEDS ORDERED: IBUP-844 PO (09:29)
--- NOTE | 2017-08-14 09:34 | Discharge Instructions ---
Discharge Inst-Women's Serv Depart Medications New, Converted or Re-Newed RX: Transmitted to Pharmacy New Medications: Ibuprofen (Ibu) 600 Mg Tablet 600 MG PO Q6H, #90 TAB 0 Refills Continued Medications: Vit W-Ca,Fe,FA(<1 mg) ( Vitamins) 1 Each Tablet 1 EACH PO DAILY, TAB Follow Up/Instructions Goal/Follow Up: Follow-up with Dr. Moncada for 6 week check. Go to [facility] for repeat CBC this week. Activity Activity: Activity as Tolerated Nothing Inside Vagina: No Douching, No [place], No Tampons Diet Discharge Diet: No Restrictions Symptoms to Report to : Bleeding Excessive, Eyesight Changes, Fever Over 101 Degrees F, Vaginal Bleeding Increase, Vaginal Discharge Foul, Dizziness/ Fainting, Shortness of Breath For Any Problems or Questions: Contact Your Physician Copies To 1: [place] MONCADA MD, LINDA K DO August 14, 2017 09:34
[2017-08-14 13:30] VITALS: BP 99/61
[2017-08-14 17:00] VITALS: BP 113/55
[2017-08-14 18:15] VITALS: BP 113/55
== END 2017-08-14 18:15 | disposition home or self-care (01) | DRG 775 ==
LOC: LDRP 13:33 → WSo 13:33 → LDRP 14:01
PROVIDERS: ADMIT Family Medicine; ATTEND Family Medicine
PROC: 10E0XZZ Delivery of Products of Conception, External Approach (ICD-10-PCS; principal; 2017-08-12)
DX: O99.13 Other diseases of the blood and blood-forming organs and certain disorders involving the immune mechanism complicating the puerperium (principal); D69.6 Thrombocytopenia, unspecified; O36.0930 Maternal care for other rhesus isoimmunization, third trimester, not applicable or unspecified; Z3A.39 39 weeks gestation of pregnancy; Z37.0 Single live birth
CPT/HCPCS: 36415; 83033; 85025; 86850; 86900; 86901; 88307; 99212

== ENCOUNTER 2017-10-05 10:32 | Outpatient (RCR) | payer MEDICAID ==
[~2017-10-05 10:32] MED LIST changes: +IBUP-844 PO; +PREN1TAB86 PO
[2017-10-05 11:02] LABS: BASOPHILS % (AUTO) 1 % (0-10); EOSINOPHILS # (AUTO) 0.2 10^3/uL (0.0-0.3); EOSINOPHILS % (AUTO) 4 % (0-10); HEMATOCRIT 38 % (35-52); HEMOGLOBIN 13.4 G/DL (11.5-16.0); LYMPHOCYTES # (AUTO) 2.3 X 10^3 (1.0-4.0); LYMPHOCYTES % (AUTO) 39 % (12-44); MEAN CORPUSCULAR HEMOGLOBIN 29 PG (25-34); MEAN CORPUSCULAR HGB CONC 35 G/DL (32-36); MEAN CORPUSCULAR VOLUME 82 FL (80-99); MONOCYTES # (AUTO) 0.6 X 10^3 (0.0-1.0); MONOCYTES % (AUTO) 9 % (0-12); NEUTROPHILS # (AUTO) 2.8 X 10^3 (1.8-7.8); NEUTROPHILS % (AUTO) 48 % (42-75); PLATELET COUNT 126 10^3/uL (130-400); RED CELL DISTRIBUTION WIDTH 13.6 % (10.0-14.5); WHITE BLOOD COUNT 5.9 10^3/uL (4.3-11.0)
[2017-10-05 11:16] LABS: ALANINE AMINOTRANSFERASE 19 U/L (0-55); ALBUMIN 4.6 GM/DL (3.2-4.5); ALKALINE PHOSPHATASE 65 U/L (40-136); BILIRUBIN,TOTAL 0.5 MG/DL (0.1-1.0); BUN/CREATININE RATIO 12; CARBON DIOXIDE 26 MMOL/L (21-32); CHLORIDE 107 MMOL/L (98-107); CREATININE SERUM 0.92 MG/DL (0.60-1.30); GFR ESTIMATED > 60; GLUCOSE 90 MG/DL (70-105); POTASSIUM 4.4 MMOL/L (3.6-5.0); SODIUM 141 MMOL/L (135-145); TOTAL PROTEIN 7.6 GM/DL (6.4-8.2)
== END 2017-10-16 | disposition home or self-care (01) ==
LOC: ONC 10:32
PROVIDERS: ATTEND Internal Medicine Hematology & Oncology
DX: D69.6 Thrombocytopenia, unspecified (principal); R79.0 Abnormal level of blood mineral
CPT/HCPCS: 36415; 80053; 85025; 99213